=== PATIENT | female | born 1965 | race Caucasian/White ===

== ENCOUNTER 2017-03-06 09:39 | Outpatient (CLI) | payer OTHER ==
--- NOTE | 2017-03-06 10:55 | RAD ---
4 VIEWS RIGHT KNEE: Date: 03/06/17 COMPARISON: None. HISTORY: Right knee pain. FINDINGS: Four views of the right knee show no evidence of acute fracture or dislocation. There are moderate t ricompartment osteophytes consistent with osteoarthritis. No knee effusion is seen. IMPRESSION: Moderate right knee osteoarthritis. POS: [facility]
== END 2017-03-06 09:40 | disposition home or self-care (01) ==
LOC: RAD-FRANK 09:39
PROVIDERS: ATTEND Nurse Practitioner Family
DX: M25.561 Pain in right knee (principal); M17.11 Unilateral primary osteoarthritis, right knee

== ENCOUNTER 2017-05-20 10:40 | Outpatient (CLI) | payer OTHER ==
--- NOTE | 2017-05-20 11:53 | RAD ---
SUPINE ABDOMEN: History: Abdominal pain. FINDINGS: Bowel gas pattern unremarkable. Scattered stool and gas throughout colon. Some scattered small bowel gas has an unremarkable appearance. No evidence of mass. There are two small calcifications overlying the left renal outline which could potentially represent renal calcification. A calcific density ove rlying the outer right upper abdomen lies outside the renal outline. IMPRESSION: 1. Unremarkable bowel gas pattern. 2. Question left renal calcifications. POS: [facility]
== END 2017-05-20 10:41 | disposition home or self-care (01) ==
LOC: RAD-FRANK 10:40
PROVIDERS: ATTEND Nurse Practitioner Family
DX: R10.9 Unspecified abdominal pain (principal)
CPT/HCPCS: 74000

== ENCOUNTER 2017-06-12 11:26 | Outpatient (CLI) | payer OTHER ==
--- NOTE | 2017-06-12 11:46 | RAD ---
TWO VIEW CHEST: Comparison: 07-30-10 Clinical history: Chest pain. FINDINGS: Lungs are clear. No effusion or pneumothorax. Cardiac silhouette is normal in size. IMPRESSION: No focal consolidation. POS: [facility]
== END 2017-06-12 11:27 | disposition home or self-care (01) ==
LOC: RAD-FRANK 11:26
PROVIDERS: ATTEND Nurse Practitioner Family
DX: R07.89 Other chest pain (principal)
CPT/HCPCS: 71046

== ENCOUNTER 2017-09-08 10:31 | Outpatient (CLI) | payer OTHER ==
--- NOTE | 2017-09-08 12:07 | RAD ---
LUMBAR SPINE RADIOGRAPH 3 VIEW SERIES: INDICATION: Low back pain. FINDINGS: There is multilevel end plate degenerative change with osteophytosis. Mild degenerative disk space n arrowing is seen at multiple levels. No significant subluxation. No compression deformity. There i s multilevel facet sclerosis, greatest inferiorly. Incidental note of atherosclerosis. Punctate den sities overlie the left renal shadow and may represent nephrolithiasis, although not definitely deborah cterized. IMPRESSION: 1. Multilevel degenerative change of the lumbar spine. 2. Atherosclerosis. 3. Punctate densities overlying the left abdomen could relate to nephrolithiasis. Correlate clinica lly and, as necessary, dedicated imaging followup may be obtained. POS: [facility]
== END 2017-09-08 10:32 | disposition home or self-care (01) ==
LOC: RAD-FRANK 10:31
PROVIDERS: ATTEND Nurse Practitioner Family
DX: M54.9 Dorsalgia, unspecified (principal); M47.896 Other spondylosis, lumbar region; I70.90 Unspecified atherosclerosis
CPT/HCPCS: 72100

== ENCOUNTER 2017-11-24 11:19 | Outpatient (CLI) | payer OTHER ==
--- NOTE | 2017-11-24 11:56 | RAD ---
PA AND LATERAL CHEST: History: Chest pain FINDINGS: Comparison made with exam of 06-12-17. The heart size is normal. The lungs are expanded without focal areas of consolidation, pneumothorax o r pleural effusions. There are degenerative changes of the spine. IMPRESSION: No radiographic evidence of acute cardiopulmonary process. POS: [facility]
== END 2017-11-24 11:20 | disposition home or self-care (01) ==
LOC: RAD-FRANK 11:19
PROVIDERS: ATTEND Nurse Practitioner Family
DX: R07.9 Chest pain, unspecified (principal)
CPT/HCPCS: 71046

== ENCOUNTER 2018-06-10 14:47 | Outpatient (CLI) | payer OTHER ==
--- NOTE | 2018-06-10 16:32 | RAD ---
PA AND LATERAL VIEWS CHEST: Date: 06/10/18 HISTORY: Wheezing. FINDINGS: Comparison made with exam of 11/24/17. The heart size is normal. The lungs are well expanded without focal areas of consolidation, pneumotho races, or pleural effusions. There are degenerative changes in the spine. IMPRESSION: No radiographic evidence of acute cardiopulmonary process. POS: [facility]
== END 2018-06-10 14:48 | disposition home or self-care (01) ==
LOC: RAD-FRANK 14:47
PROVIDERS: ATTEND Nurse Practitioner Family
DX: R06.2 Wheezing (principal)
CPT/HCPCS: 71046

== ENCOUNTER 2018-07-13 11:04 | Outpatient (CLI) | payer OTHER ==
--- NOTE | 2018-07-13 11:59 | RAD ---
CHEST 2 VIEWS: Date: 07/13/18 HISTORY: Lump under left breast, lateral to sternum. COMPARISON: 06/10/18. FINDINGS: Heart size is normal. The lungs are clear. IMPRESSION: No acute intrathoracic disease. Stable from prior study. Atherosclerosis of aorta. If there is concer n for a palpable abnormality, follow-up ultrasound study of that palpable abnormality might be of luz efit. POS: [facility]
== END 2018-07-13 11:05 | disposition home or self-care (01) ==
LOC: RAD-FRANK 11:04
PROVIDERS: ATTEND Nurse Practitioner Family
DX: R22.2 Localized swelling, mass and lump, trunk (principal); I70.0 Atherosclerosis of aorta
CPT/HCPCS: 71046

== ENCOUNTER 2018-12-07 16:00 | Outpatient (CLI) | payer OTHER ==
--- NOTE | 2018-12-07 17:20 | RAD ---
ABDOMEN ONE VIEW: COMPARISON: 05/20/2017 CORRELATION: CT stone protocol from 09/04/2018. FINDINGS: Nonspecific bowel gas pattern. A calculus projects over the left renal silhouette, measuring 1.3 cm. Additional calculi are not appreciated. IMPRESSION: Calculus projecting over the left renal silhouette, at the level of the left renal pelvis. POS: [facility]
== END 2018-12-07 16:01 | disposition home or self-care (01) ==
LOC: RAD 16:00
PROVIDERS: ATTEND Urology
DX: N20.0 Calculus of kidney (principal)
CPT/HCPCS: 74018

== ENCOUNTER 2019-02-03 06:53 | Outpatient (CLI) | payer OTHER ==
[2019-02-03 14:50] LABS: Hemoglobin 16.5 g/dL (12.0-16.0); Mean Corpuscular HGB CONC 34.6 g/dL (32.0-36.0); Mean Corpuscular Hemoglobin 32.3 pg (27.0-31.0); Mean Corpuscular Volume 93.1 fL (78.0-98.0); Mean Platelet Volume 7.4 fL (7.4-10.4); Platelet Count 279 thou/uL (130-400); RBC Distribution Width 11.9 % (11.5-14.5); Red Blood Cell (RBC) Count 5.12 mill/uL (4.20-5.40)
[2019-02-03 14:55] LABS: INR-International Normal Ratio 0.9; PTT 34.9 SEC (22.9-36.1); Prothrombin Time 11.9 SEC (12.0-14.7)
[2019-02-03 15:04] LABS: BHCG - Serum Negative (NEGATIVE); Pregs Control Background? CLEAR/WHITE (CLR/WHITE); Pregs Control Bar Appear? YES (CONTROL BAR)
[2019-02-03 15:10] LABS: Bilirubin Negative (Negative); Blood, Urine Negative (Negative); Clarity Clear (Clear); Glucose, Urine (Dipstick) Normal (Negative); Leukocyte Negative Leu/uL (Negative); Nitrite Negative (Negative); Protein, Urine (Dipstick) Negative (Neg-Trace); RBC/HPF 0-3 HPF (0-3); Urobilinogen Normal mg/dL (Less than 2); WBC/HPF 0-3 HPF (0-3)
[2019-02-03 15:17] LABS: Anion Gap 13 mmol/L (10-20); BUN (Urea Nitrogen) 17 mg/dL (9.8-20.1); Calc. Creatinine Clearance 0 mL/min (70-130); Calcium 9.8 mg/dL (7.8-10.44); Carbon Dioxide 22 mmol/L (22-29); Chloride 110 mmol/L (98-107); Estimated GFR-MDRD 75; Glucose 92 mg/dL (70-105); Potassium 3.8 mmol/L (3.5-5.1); Sodium 141 mmol/L (136-145)
[2019-02-03 15:20] LABS: Bacteria/HPF 1+ HPF (None Seen)
== END 2019-02-03 06:54 | disposition home or self-care (01) ==
LOC: LABBT 06:53
PROVIDERS: ATTEND Urology
DX: Z01.818 Encounter for other preprocedural examination (principal); N20.0 Calculus of kidney
CPT/HCPCS: 80048; 81001; 84703; 85027; 85610; 85730; 87086; 93005; 93010

== ENCOUNTER 2019-02-11 08:25 | Day surgery (SDC) | payer OTHER ==
[2019-02-03 13:47] VITALS: BMI 28.9
[2019-02-11] MEDS ORDERED: B & O ONE (10:36)
[2019-02-11] MEDS ORDERED: Levofloxacin 500 mg/D5W 100 ml Premix Bag ONE (10:36)
[2019-02-11] MEDS ORDERED: Midazolam HCl 2 mg/2 ml Vial ONE (10:43)
[2019-02-11] MEDS ORDERED: Fentanyl 100 MCG/2 ML VIAL ONE ×3 (10:43→12:21)
[2019-02-11] MEDS ORDERED: Promethazine HCl 25 MG/ML VIAL ONE (11:58)
[2019-02-11] MEDS ORDERED: PROPOFOL 200 MG/20 ML VIAL ONE (12:54)
[2019-02-11] MEDS ORDERED: ePHEDrine 50 MG/ML VIAL ONE (12:54)
[2019-02-11] MEDS ORDERED: Lidocaine 1% PF 5 ML VIAL ONE (12:54)
--- NOTE | 2019-02-11 15:27 | OP ---
DATE OF PROCEDURE: 02/11/2019 SERVICE: Urology. PREOPERATIVE DIAGNOSIS: Left ureteropelvic junction stone. POSTOPERATIVE DIAGNOSIS: Left ureteropelvic junction stone. PROCEDURES PERFORMED: Left ureteroscopy, laser lithotripsy, basket extraction of stone, and placement of a 6 x 24 double-J stent with string attached. INDICATION FOR PROCEDURE: Ms. Duque is a 54-year-old white female, who initially presented with left flank pain. CT demonstrated a 1.1 cm UPJ stone without significant obstruction. She has elected to have this treated given the size and occasional symptoms. Risks and benefits have been discussed. She has agreed to proceed forward. DESCRIPTION OF PROCEDURE: After identification of armband and verification of consent, the patient was brought back to the operating room, where she underwent general anesthesia with an LMA. She was then placed in dorsal lithotomy position and prepped and draped in usual sterile fashion. After appropriate time-out, a lubricated 22-Bangladeshi rigid cystoscope was introduced per urethra and attention was turned to the left ureteral orifice. This was cannulated with a 0.035 Sensor wire up to the level of the kidney. The cystoscope was then removed, and a dual-lumen catheter was advanced over the Sensor wire up to the level of the proximal ureter. An Amplatz Super Stiff wire was then advanced through the second lumen up to the level of the kidney, and then the dual-lumen removed. The Sensor wire was then affixed to the drapes as a safety wire. An 11/13 x 28 cm ureteral access sheath was advanced with ease over the Super Stiff wire up to the level of the proximal ureter. The inner cannula was then removed leaving the outer sheath and Sensor wire in place. A flexible digital ureteroscope was then passed through the ureteral access sheath up into the kidney, where the stone was immediately apparent. Using a 273 ball-tipped micron laser fiber, the stone was completely fragmented in the dusting setting into very, very small particles. The few remaining larger pieces were basketed out using a 1.9-Bangladeshi ZeroTip Nitinol basket, and any remaining pieces were pulverized using the popcorn setting on the laser to break them up into 1 mm particles. Upon completion, there were no particles that were greater than a millimeter. All stone fragments were extremely small and I felt this would pass on its own. The ureteroscope was then withdrawn into the ureter, and pull-back ureteroscopy was employed to ensure that there were no fragments within the ureter, none were encountered. The cystoscope was then backloaded over the Sensor wire back into the bladder, and a 6 x 24 double-J stent with string attached was advanced over the Sensor wire up to the level of the kidney. The wire was removed leaving a partial curl in the kidney and a good curl in the bladder. The bladder was then emptied. The cystoscope was removed. The OpSite was affixed to the patient's inner thigh, and B and O suppository was placed in the rectum. She was then taken out of positioning awakened, taken to PACU for recovery in stable condition. COMPLICATIONS: None. ESTIMATED BLOOD LOSS: Minimal. RETAINED TUBES AND DRAINS: 6 x 24 double-J stent on the left with string attached. SPECIMENS: Stone for stone analysis. DISPOSITION: The patient will follow up in 1 week for a stent removal in office or she may remove the stent at home. We will then handle her stone prevention on an outpatient basis. Job ID: [id number]
== END 2019-02-11 14:18 | disposition home or self-care (01) ==
LOC: SDC 08:25
PROVIDERS: ATTEND Urology
PROC: 0T778DZ Dilation of Left Ureter with Intraluminal Device, Via Natural or Artificial Opening Endoscopic (ICD-10-PCS; principal; 2019-02-11)
PROC: 0TF48ZZ Fragmentation in Left Kidney Pelvis, Via Natural or Artificial Opening Endoscopic (ICD-10-PCS; principal; 2019-02-11)
DX: N20.0 Calculus of kidney (principal); I10 Essential (primary) hypertension; G43.909 Migraine, unspecified, not intractable, without status migrainosus; E78.5 Hyperlipidemia, unspecified; Z79.899 Other long term (current) drug therapy; Z88.2 Allergy status to sulfonamides; Z88.5 Allergy status to narcotic agent; Z91.048 Other nonmedicinal substance allergy status
CPT/HCPCS: 76000; 82365; 88300; C1769; J1956; J2001; J2250; J2550; J2704; J3010; J3490

== ENCOUNTER 2019-06-10 09:14 | Outpatient (CLI) | payer OTHER ==
--- NOTE | 2019-06-10 09:39 | ULT ---
RENAL ULTRASOUND HISTORY: Nephrolithiasis COMPARISON: CT of the abdomen and pelvis dated September 03, 2018 FINDINGS: Right Kidney: Size: 10.7 x 4.7 x 5.8 cm. Abnormality: Normal cortical echotexture. No hydronephrosis. Left Kidney: Size: 11.4 x 5.5 x 6.0 cm. Abnormality: Normal cortical echotexture. No hydronephrosis Urinary bladder: Normal mucosa. The prevoid bladder volume was 290 cc. There is no appreciable residual seen following voiding. IMPRESSION: No focal renal lesion or hydronephrosis.
== END 2019-06-10 09:15 | disposition home or self-care (01) ==
LOC: BICULT 09:14
PROVIDERS: ATTEND Urology
DX: N20.0 Calculus of kidney (principal)
CPT/HCPCS: 76770

== ENCOUNTER 2019-11-08 10:19 | Outpatient (CLI) | payer OTHER ==
--- NOTE | 2019-11-08 12:15 | RAD ---
RIGHT KNEE 4 VIEWS: Date; 11/08/2019 HISTORY: Right knee pain. FINDINGS: Comparison made with exam of 03/06/2017. Moderate osteoarthritic changes are again seen. No fracture, dislocation, or bony destruction identif ied. IMPRESSION: Moderate right knee osteoarthritis. POS: [facility]
== END 2019-11-08 10:20 | disposition home or self-care (01) ==
LOC: RAD-FRANK 10:19
PROVIDERS: ATTEND Nurse Practitioner Family
DX: M25.561 Pain in right knee (principal); M17.11 Unilateral primary osteoarthritis, right knee

== ENCOUNTER 2021-03-15 07:58 | Outpatient (CLI) | payer OTHER | END 2021-03-15 07:59 | disposition home or self-care (01) | LOC: BICCT 07:58 | PROVIDERS: ATTEND Otolaryngology Plastic Surgery within the Head & Neck | DX: H90.5 Unspecified sensorineural hearing loss (principal); G93.89 Other specified disorders of brain | CPT/HCPCS: 70480 ==

== ENCOUNTER 2022-03-14 09:25 | Outpatient (CLI) | payer OTHER | END 2022-03-14 09:26 | disposition home or self-care (01) | LOC: RAD-FRANK 09:25 | PROVIDERS: ATTEND Nurse Practitioner Family | DX: M79.604 Pain in right leg (principal); M17.11 Unilateral primary osteoarthritis, right knee; M77.31 Calcaneal spur, right foot ==

== ENCOUNTER 2023-01-06 09:29 | Outpatient (CLI) | payer OTHER | END 2023-01-06 09:30 | disposition home or self-care (01) | LOC: RAD-FRANK 09:29 | PROVIDERS: ATTEND Nurse Practitioner Family | DX: R05.9 Cough, unspecified (principal) | CPT/HCPCS: 71046 ==

== ENCOUNTER 2023-08-19 11:21 | Outpatient (CLI) | payer OTHER | END 2023-08-19 11:22 | disposition home or self-care (01) | LOC: RAD 11:21 | PROVIDERS: ATTEND Nurse Practitioner Family | DX: S39.012A Strain of muscle, fascia and tendon of lower back, initial encounter (principal); M47.816 Spondylosis without myelopathy or radiculopathy, lumbar region | CPT/HCPCS: 72110 ==

== ENCOUNTER 2023-10-21 09:01 | Outpatient (CLI) | payer OTHER | END 2023-10-21 09:02 | disposition home or self-care (01) | LOC: BICULT 09:01 | PROVIDERS: ATTEND Nurse Practitioner Family | DX: R60.0 Localized edema (principal) ==

== ENCOUNTER 2024-07-22 14:02 | Outpatient (CLI) | payer OTHER | END 2024-07-22 14:03 | disposition home or self-care (01) | LOC: BICMAMMO 14:02 | PROVIDERS: ATTEND Nurse Practitioner Family | DX: Z12.31 Encounter for screening mammogram for malignant neoplasm of breast (principal); Z80.3 Family history of malignant neoplasm of breast | CPT/HCPCS: 77067 ==

== ENCOUNTER 2024-07-25 19:30 | Inpatient (IN) | payer OTHER ==
[2024-07-25 20:47] LABS: Actual Bicarbonate (HCO3v) 20.7 mEq/L (22-28); Analyzer IN Cardio ER; Base Excess -2.7 mEq/L (-2.0 to +3.0); Calcium, Ionized (venous) 1.06 mmol/L (1.16-1.32); Chloride (VBG) 103 mmol/L (98-106); Hematocrit-VBG 39 % (36.0-47.0); Hemoglobin (Hb) 13.2 g/dL (11.7-16.0); Sodium 138 mmol/L (133-146)
[2024-07-25] MEDS ORDERED: Sodium Chloride 0.9% 100 ML ONE (21:27)
[2024-07-25] MEDS ORDERED: cefTRIAXone (ROCEPHIN) 2 GM VIAL ONE (21:27)
[2024-07-25] MEDS ORDERED: Lorazepam 2 MG/ML VIAL ONE (23:26)
[2024-07-25] MEDS ORDERED: Haloperidol Lactate 5 MG/ML VIAL ONE (23:42)
[2024-07-26] MEDS ORDERED: Ondansetron PF 4 MG/2 ML Vial IVP PRN (00:26)
[2024-07-26] MEDS ORDERED: Ondansetron ODT 4 MG TAB PO PRN (00:26)
[2024-07-26] MEDS ORDERED: traMADol HCl 50 MG TAB PO PRN (00:26)
[2024-07-26] MEDS ORDERED: Ketorolac Tromethamine 30 MG (1 mL) VIAL IVP PRN (00:26)
[2024-07-26 00:59] LABS: Color Of CSF Supernatant COLORLESS (Colorless); Tube # 2; Unspun CSF Color COLORLESS (Colorless)
[2024-07-26 01:02] LABS: CSF Source CSF
[2024-07-26 01:03] LABS: Clarity Hazy (Clear); Tube # 1
[2024-07-26 01:08] LABS: CSF, Glucose 56 mg/dl (40-70); CSF, Protein 48.7 mg/dL (15-40)
[2024-07-26 01:34] LABS: #Basophils Less than 0.03 10x3/uL (0.0-0.2); #Eosinophils Less than 0.03 10x3/uL (0.0-0.7); %Basophils 0.3 % (0.0-1.0); %Lymphocytes 5.9 % (21.0-51.0); %Monocytes 4.4 % (0.0-10.0); %Neutrophils 88.9 % (42.0-75.0); Hematocrit 39.3 % (36.0-47.0); Hemoglobin 12.2 g/dL (12.0-16.0); Mean Corpuscular Hemoglobin 27.2 pg (27.0-31.0); Mean Corpuscular Volume 87.5 fL (78.0-98.0); Mean Platelet Volume 9.4 fL (7.4-10.4); Platelet Count 193 10x3/uL (130-400); RBC Distribution Width 15.9 % (11.5-14.5); Red Blood Cell (RBC) Count 4.49 mill/uL (4.20-5.40)
[2024-07-26 01:52] LABS: ALT (SGPT) 13 U/L (Less than 34); AST (SGOT) 45 U/L (11-34); Albumin 3.4 g/dL (3.1-4.5); Alkaline Phosphatase 56 U/L (40-110); Anion Gap 18 mmol/L (10-20); BUN (Urea Nitrogen) 12 mg/dL (9.8-20.1); Bilirubin, Total 0.2 mg/dL (0.3-1.2); Calc. Creatinine Clearance 0 mL/min (70-130); Calcium 8.6 mg/dL (7.8-10.44); Carbon Dioxide 17 mmol/L (22-29); Chloride 106 mmol/L (98-107); Estimated GFR 84; Globulin 3.8 g/dL (2.4-3.5); Glucose 134 mg/dL (70-105); Potassium 3.5 mmol/L (3.5-5.1); Protein, Total 7.2 g/dL (6.0-8.3); Sodium 137 mmol/L (136-145)
[2024-07-26] MEDS ORDERED: Glucagon 1 MG/ML KIT IM PRN (02:18)
[2024-07-26] MEDS ORDERED: Dextrose 50% Abboject 50 ML SYRINGE SLOW IVP PRN (02:18)
[2024-07-26] MEDS ORDERED: Dextrose 5% in Water 1,000 ML IV PRN (02:18)
[2024-07-26] MEDS ORDERED: Insulin Lispro 100 UNIT/ML 10 ML VIAL SC PRN ×2 (02:18)
[2024-07-26 02:42] LABS: Amphetamine Not Detected (NotDetected); Barbiturates Screen Detected (NotDetected); Benzodiazepine Screen Detected (NotDetected); Cocaine Metabolite Screen Not Detected (NotDetected); Methadone Not Detected (NotDetected); Methamphetamine Not Detected (NotDetected); Opiate Screen Not Detected (NotDetected); Oxycodone Screen Not Detected (NotDetected); Phencyclidine (PCP) Not Detected (NotDetected); THC/Cannabinoid Screen Not Detected (NotDetected); Tricyclic Screen Not Detected (NotDetected)
[2024-07-26 03:37] LABS: #Basophils 0.03 10x3/uL (0.0-0.2); #Eosinophils Less than 0.03 10x3/uL (0.0-0.7); %Basophils 0.4 % (0.0-1.0); %Lymphocytes 7.8 % (21.0-51.0); %Monocytes 4.9 % (0.0-10.0); %Neutrophils 86.5 % (42.0-75.0); Hematocrit 35.5 % (36.0-47.0); Hemoglobin 11.5 g/dL (12.0-16.0); Mean Corpuscular HGB CONC 32.4 g/dL (32.0-36.0); Mean Corpuscular Hemoglobin 27.3 pg (27.0-31.0); Mean Corpuscular Volume 84.3 fL (78.0-98.0); Mean Platelet Volume 9.8 fL (7.4-10.4); Platelet Count 189 10x3/uL (130-400); RBC Distribution Width 15.9 % (11.5-14.5); Red Blood Cell (RBC) Count 4.21 mill/uL (4.20-5.40)
[2024-07-26 03:54] LABS: Alcohol Less than 10.0 mg/dL (Less than 10)
[2024-07-26 04:07] LABS: CK (CPK) 4320 U/L (29-168)
[2024-07-26 04:08] LABS: ALT (SGPT) 15 U/L (Less than 34); AST (SGOT) 54 U/L (11-34); Albumin 3.2 g/dL (3.1-4.5); Alkaline Phosphatase 51 U/L (40-110); Anion Gap 14 mmol/L (10-20); BUN (Urea Nitrogen) 12 mg/dL (9.8-20.1); Bilirubin, Total 0.2 mg/dL (0.3-1.2); Calc. Creatinine Clearance 71 mL/min (70-130); Calcium 8.4 mg/dL (7.8-10.44); Carbon Dioxide 21 mmol/L (22-29); Cardiac Risk 3.5 (Less than 4.5); Chloride 105 mmol/L (98-107); Cholesterol 125 mg/dl (< 200 Desired); Estimated GFR 92; Globulin 3.6 g/dL (2.4-3.5); Glucose 109 mg/dL (70-105); HDL Cholesterol 36 mg/dL (>60 Neg Risk); LDL Cholesterol, Calculated 67 mg/dL; Potassium 3.1 mmol/L (3.5-5.1); Protein, Total 6.8 g/dL (6.0-8.3); Sodium 137 mmol/L (136-145); Triglycerides 108 mg/dL (Less than 150)
[2024-07-26] MEDS: levETIRAcetam 500 MG (5 mL) VIAL SLOW IVP SCH ×2 (04:12→14:39)
[2024-07-26 05:48] LABS: Bacteria/HPF None Seen HPF (None Seen); Bilirubin Negative (Negative); Blood, Urine 2+ (Negative); CAUTI Indications for Culture Alt mental st,lethar; Clarity Clear (Clear); Glucose, Urine (Dipstick) Normal (Negative); Ketone, Urine 10 mg/dL (Negative); Leukocyte Negative Leu/uL (Negative); Nitrite Negative (Negative); Protein, Urine (Dipstick) 100 mg/dL (Neg-Trace); Specific Gravity, Urine 1.014 (1.002-1.036); Squamous Epithelial 0-3 HPF (0-3); Urobilinogen Normal mg/dL (Less than 2); WBC/HPF 0-3 HPF (0-3); pH, Urine 5.5 (5.0-9.0)
[2024-07-26 05:55] LABS: Urine Culture Reflex No No
[2024-07-26] MEDS ORDERED: ACYCLOVIR SODIUM IVPB SCH (06:00)
[2024-07-26] MEDS ORDERED: SODIUM CHLORIDE 0.9% IVPB SCH (06:00)
[2024-07-26 06:25] LABS: Phosphorus 2.6 mg/dL (2.5-4.5)
[2024-07-26 06:27] LABS: Magnesium 1.5 mg/dL (1.6-2.6)
[2024-07-26] MEDS: Acetaminophen 650 MG Suppository PR PRN (08:54)
[2024-07-26] MEDS: Pantoprazole 40 MG VIAL IVP SCH (08:54)
[2024-07-26] MEDS: Potassium Chloride 20 MEQ in Premix 1 BAG IVPB SCH (08:55)
[2024-07-26] MEDS ORDERED: levETIRAcetam 500 MG (5 mL) VIAL SLOW IVP SCH (09:00)
[2024-07-26] MEDS ORDERED: Famotidine/PF 20 mg/2ml Vial SLOW IVP SCH (09:00)
[2024-07-26] MEDS ORDERED: Famotidine 20 MG TAB PO SCH (09:00)
[2024-07-26] MEDS: Aspirin 81 mg Enteric Coated Tablet PO SCH (09:04)
[2024-07-26] MEDS: Sodium Chloride 0.9% 1,000 ML IV SCH (14:38)
[2024-07-26] MEDS: Magnesium 2 GM/50 ML(in water) 2 GM in Premix 1 BAG IVPB SCH (14:38)
[2024-07-26] MEDS: Ipratropium/Albuterol 3 ML NEB NEB PRN (18:54)
[2024-07-26] MEDS: Atorvastatin Calcium 40 MG TAB PO SCH (22:49)
[2024-07-27 04:00] LABS: #Basophils Less than 0.03 10x3/uL (0.0-0.2); #Eosinophils Less than 0.03 10x3/uL (0.0-0.7); %Basophils 0.6 % (0.0-1.0); %Lymphocytes 18.8 % (21.0-51.0); %Monocytes 6.7 % (0.0-10.0); %Neutrophils 73.6 % (42.0-75.0); Hematocrit 32.9 % (36.0-47.0); Hemoglobin 10.6 g/dL (12.0-16.0); Mean Corpuscular HGB CONC 32.2 g/dL (32.0-36.0); Mean Corpuscular Volume 83.7 fL (78.0-98.0); Mean Platelet Volume 9.6 fL (7.4-10.4); Platelet Count 160 10x3/uL (130-400); RBC Distribution Width 15.9 % (11.5-14.5); Red Blood Cell (RBC) Count 3.93 mill/uL (4.20-5.40)
[2024-07-27 05:02] LABS: CK (CPK) 5757 U/L (29-168)
[2024-07-27 05:04] LABS: Anion Gap 13 mmol/L (10-20); BUN (Urea Nitrogen) 10 mg/dL (9.8-20.1); Calc. Creatinine Clearance 78 mL/min (70-130); Carbon Dioxide 22 mmol/L (22-29); Chloride 104 mmol/L (98-107); Estimated GFR 100; Glucose 77 mg/dL (70-105); Potassium 3.3 mmol/L (3.5-5.1); Sodium 136 mmol/L (136-145)
[2024-07-27] MEDS ORDERED: Electrolyte Replacement Protocol FS PRN (10:45)
[2024-07-27] MEDS: Potassium Chloride 20 MEQ TAB PO SCH (10:47)
[2024-07-27] MEDS: Acetaminophen 325 MG TAB PO PRN (12:02)
[2024-07-27] MEDS: Magnesium 2 GM/50 ML(in water) 2 GM in Premix 1 BAG IVPB SCH (12:03)
[2024-07-27 17:25] LABS: Potassium 3.7 mmol/L (3.5-5.1)
[2024-07-28 04:24] LABS: #Basophils Less than 0.03 10x3/uL (0.0-0.2); %Basophils 0.8 % (0.0-1.0); %Eosinophils 1.6 % (0.0-10.0); %Lymphocytes 29.5 % (21.0-51.0); %Monocytes 8.2 % (0.0-10.0); %Neutrophils 59.9 % (42.0-75.0); Hematocrit 37.8 % (36.0-47.0); Hemoglobin 12.2 g/dL (12.0-16.0); Mean Corpuscular HGB CONC 32.3 g/dL (32.0-36.0); Mean Corpuscular Hemoglobin 26.9 pg (27.0-31.0); Mean Corpuscular Volume 83.3 fL (78.0-98.0); Mean Platelet Volume 9.2 fL (7.4-10.4); Platelet Count 182 10x3/uL (130-400); RBC Distribution Width 15.9 % (11.5-14.5); Red Blood Cell (RBC) Count 4.54 mill/uL (4.20-5.40)
[2024-07-28 04:26] LABS: Anion Gap 16 mmol/L (10-20); BUN (Urea Nitrogen) 7 mg/dL (9.8-20.1); Calc. Creatinine Clearance 82 mL/min (70-130); Calcium 8.6 mg/dL (7.8-10.44); Carbon Dioxide 22 mmol/L (22-29); Chloride 105 mmol/L (98-107); Estimated GFR 101; Glucose 78 mg/dL (70-105); Magnesium 1.7 mg/dL (1.6-2.6); Potassium 3.5 mmol/L (3.5-5.1); Sodium 139 mmol/L (136-145)
[2024-07-28 06:28] VITALS: BMI 24.4
[2024-07-28] MEDS: Potassium Chloride 20 MEQ TAB PO SCH (08:40)
[2024-07-28] MEDS: Magnesium 2 GM/50 ML(in water) 2 GM in Premix 1 BAG IVPB SCH (08:40)
[2024-07-28] MEDS: Pantoprazole 40 MG DR.TAB PO SCH (08:40)
[2024-07-28] MEDS: Lorazepam 2 MG/ML VIAL SLOW IVP PRN (11:24)
[2024-07-28 12:37] LABS: West Nile Virus IgG Ab - CSF Negative (Negative); West Nile Virus IgM Ab - CSF Negative (Negative)
[2024-07-28] MEDS: cloNIDine 0.2mg/24 Hour PATCH TD SCH (16:11)
[2024-07-28] MEDS: Lorazepam 2 MG/ML VIAL SLOW IVP SCH (16:12)
[2024-07-28] MEDS: Sodium Chloride 0.9% 1,000 ML IV SCH (16:17)
[2024-07-28] MEDS: Haloperidol Lactate 5 MG/ML VIAL IM SCH (17:04)
[2024-07-29 04:32] LABS: Hematocrit 33.2 % (36.0-47.0); Hemoglobin 10.8 g/dL (12.0-16.0); Mean Corpuscular HGB CONC 32.5 g/dL (32.0-36.0); Mean Corpuscular Hemoglobin 27.3 pg (27.0-31.0); Mean Corpuscular Volume 83.8 fL (78.0-98.0); Mean Platelet Volume 8.7 fL (7.4-10.4); Platelet Count 178 10x3/uL (130-400); RBC Distribution Width 15.6 % (11.5-14.5); Red Blood Cell (RBC) Count 3.96 mill/uL (4.20-5.40)
[2024-07-29 04:59] LABS: Anion Gap 16 mmol/L (10-20); BUN (Urea Nitrogen) 6 mg/dL (9.8-20.1); Calc. Creatinine Clearance 85 mL/min (70-130); Calcium 8.3 mg/dL (7.8-10.44); Carbon Dioxide 21 mmol/L (22-29); Chloride 107 mmol/L (98-107); Estimated GFR 103; Glucose 76 mg/dL (70-105); Potassium 2.9 mmol/L (3.5-5.1); Sodium 141 mmol/L (136-145)
[2024-07-29 05:23] LABS: Band 8 % (5-11); Eosinophils 1 % (0-10); Hypochromia SLIGHT = 6-15 cells HPF (0-5); Lymphocytes 32 % (21-51); Monocytes 6 % (0-10); Neutrophil 49 % (42-75); Platelet Adequacy Comment Platelets Normal; Polychromasia SLIGHT = 2-3 cells HPF (0-2); Reactive Lymphocytes 2 % (0-10)
[2024-07-29] MEDS: Potassium Chloride 20 MEQ in Premix 1 BAG IVPB SCH (10:01)
[2024-07-29] MEDS ORDERED: Iopamidol 370 76% 100 ML VIAL ONE (10:14)
[2024-07-29] MEDS: Lorazepam 2 MG/ML VIAL SLOW IVP SCH (14:12)
[2024-07-29] MEDS: OLANZapine 5 MG TAB PO SCH (14:12)
[2024-07-29] MEDS: levETIRAcetam 500 MG (5 mL) VIAL SLOW IVP SCH (16:29)
[2024-07-29] MEDS ORDERED: Lorazepam 2 MG/ML VIAL SLOW IVP PRN (16:57)
[2024-07-29] MEDS: Labetalol HCl 100 MG/20 ML VIAL SLOW IVP SCH (22:24)
[2024-07-30] MEDS: Labetalol HCl 100 MG/20 ML VIAL SLOW IVP SCH ×2 (05:07→22:42)
[2024-07-30 07:47] LABS: Hematocrit 37.2 % (36.0-47.0); Hemoglobin 12.4 g/dL (12.0-16.0); Mean Corpuscular HGB CONC 33.3 g/dL (32.0-36.0); Mean Corpuscular Hemoglobin 27.3 pg (27.0-31.0); Mean Corpuscular Volume 81.9 fL (78.0-98.0); Mean Platelet Volume 9.1 fL (7.4-10.4); Platelet Count 201 10x3/uL (130-400); RBC Distribution Width 15.5 % (11.5-14.5); Red Blood Cell (RBC) Count 4.54 mill/uL (4.20-5.40)
[2024-07-30 07:52] LABS: Anion Gap 18 mmol/L (10-20); BUN (Urea Nitrogen) 8 mg/dL (9.8-20.1); CK (CPK) 357 U/L (29-168); Calc. Creatinine Clearance 82 mL/min (70-130); Calcium 8.8 mg/dL (7.8-10.44); Carbon Dioxide 20 mmol/L (22-29); Chloride 106 mmol/L (98-107); Estimated GFR 103; Glucose 87 mg/dL (70-105); Potassium 3.4 mmol/L (3.5-5.1); Sodium 141 mmol/L (136-145)
[2024-07-30 09:04] LABS: Band 2 % (5-11); Burr Cells SLIGHT = 2-5 cells HPF (0-1); Eosinophils 1 % (0-10); Lymphocytes 27 % (21-51); Monocytes 3 % (0-10); Neutrophil 61 % (42-75); Platelet Adequacy Comment Platelets Normal; Polychromasia SLIGHT = 2-3 cells HPF (0-2); Reactive Lymphocytes 2 % (0-10); Smudge Cells 10.8 %
[2024-07-30] MEDS: OLANZapine 5 MG TAB PO SCH (10:36)
[2024-07-30] MEDS: Potassium Chloride 20 MEQ TAB PO SCH (10:36)
[2024-07-30] MEDS: NIFEdipine XL 30 MG ER.TAB PO SCH (15:55)
[2024-07-30] MEDS: Oxazepam 10 MG CAP PO SCH (18:00)
[2024-07-30] MEDS: Thiamine HCl 500 MG in Sodium Chloride 0.9% 100 ML IVPB SCH (18:00)
[2024-07-30] MEDS: cloNIDine 0.3mg/24 Hour PATCH TD SCH (18:02)
[2024-07-30] MEDS: hydrALAZINE 20 MG/ML VIAL SLOW IVP PRN (20:50)
[2024-07-30] MEDS: levETIRAcetam 500 mg/5 ml Oral Solution PO SCH (20:51)
[2024-07-30] MEDS: Lorazepam 2 MG/ML VIAL SLOW IVP PRN (21:25)
[2024-07-30] MEDS: levETIRAcetam 500 MG (5 mL) VIAL SLOW IVP SCH (21:56)
[2024-07-31 04:09] LABS: Hematocrit 43.8 % (36.0-47.0); Hemoglobin 14.1 g/dL (12.0-16.0); Mean Corpuscular HGB CONC 32.2 g/dL (32.0-36.0); Mean Corpuscular Hemoglobin 26.5 pg (27.0-31.0); Mean Corpuscular Volume 82.3 fL (78.0-98.0); Mean Platelet Volume 8.8 fL (7.4-10.4); Platelet Count 252 10x3/uL (130-400); RBC Distribution Width 15.4 % (11.5-14.5); Red Blood Cell (RBC) Count 5.32 mill/uL (4.20-5.40)
[2024-07-31 04:19] LABS: Anion Gap 23 mmol/L (10-20); BUN (Urea Nitrogen) 12 mg/dL (9.8-20.1); CK (CPK) 184 U/L (29-168); Calc. Creatinine Clearance 73 mL/min (70-130); Calcium 9.7 mg/dL (7.8-10.44); Carbon Dioxide 15 mmol/L (22-29); Chloride 105 mmol/L (98-107); Estimated GFR 100; Glucose 109 mg/dL (70-105); Potassium 3.4 mmol/L (3.5-5.1); Sodium 140 mmol/L (136-145)
[2024-07-31 04:36] LABS: HIV (1/2) Antibody/Antigen NONREACTIVE (NonReactive); HIV 1/2 INDEX 0.05 S/CO (<1.00)
[2024-07-31 05:37] LABS: Anisocytosis SLIGHT = 6-15 cells HPF (0-5); Band 3 % (5-11); Burr Cells SLIGHT = 2-5 cells HPF (0-1); Lymphocytes 21 % (21-51); Monocytes 11 % (0-10); Neutrophil 65 % (42-75); Ovalocytes SLIGHT = 2-5 cells HPF (0-1); Platelet Adequacy Comment Platelets Normal; Polychromasia SLIGHT = 2-3 cells HPF (0-2)
[2024-07-31] MEDS: Potassium Chloride 20 MEQ TAB PO SCH ×2 (08:54→16:58)
[2024-07-31] MEDS: NIFEdipine XL 30 MG ER.TAB PO SCH (09:10)
[2024-07-31] MEDS: Metoprolol Tartrate 5 MG (5 mL) VIAL IVP SCH (12:54)
[2024-07-31 14:09] LABS: Potassium 3.5 mmol/L (3.5-5.1)
[2024-08-01] MEDS: Metoprolol Tartrate 5 MG (5 mL) VIAL IVP PRN (03:23)
[2024-08-01 04:03] LABS: Hematocrit 44.5 % (36.0-47.0); Hemoglobin 14.4 g/dL (12.0-16.0); Mean Corpuscular HGB CONC 32.4 g/dL (32.0-36.0); Mean Corpuscular Hemoglobin 26.4 pg (27.0-31.0); Mean Corpuscular Volume 81.7 fL (78.0-98.0); Mean Platelet Volume 9.2 fL (7.4-10.4); Platelet Count 321 10x3/uL (130-400); Red Blood Cell (RBC) Count 5.45 mill/uL (4.20-5.40)
[2024-08-01 04:15] LABS: Anion Gap 23 mmol/L (10-20); BUN (Urea Nitrogen) 26 mg/dL (9.8-20.1); Calc. Creatinine Clearance 66 mL/min (70-130); Calcium 10.1 mg/dL (7.8-10.44); Carbon Dioxide 15 mmol/L (22-29); Chloride 109 mmol/L (98-107); Estimated GFR 89; Glucose 127 mg/dL (70-105); Potassium 3.4 mmol/L (3.5-5.1); Sodium 144 mmol/L (136-145)
[2024-08-01 04:33] LABS: Lymphocytes 15 % (21-51); Monocytes 6 % (0-10); Neutrophil 76 % (42-75); Platelet Adequacy Comment Platelets Normal; RBC Morphology Within Normal Limits; Reactive Lymphocytes 2 % (0-10)
[2024-08-01] MEDS: Potassium Chloride 20 MEQ in Premix 1 BAG IVPB SCH (05:28)
[2024-08-01] MEDS: NIFEdipine XL 60 MG ER.TAB PO SCH (10:33)
[2024-08-02 04:51] LABS: #Basophils 0.04 10x3/uL (0.0-0.2); #Eosinophils Less than 0.03 10x3/uL (0.0-0.7); %Basophils 0.4 % (0.0-1.0); %Eosinophils 0.2 % (0.0-10.0); %Lymphocytes 19.7 % (21.0-51.0); %Monocytes 7.9 % (0.0-10.0); %Neutrophils 70.8 % (42.0-75.0); Hematocrit 44.5 % (36.0-47.0); Hemoglobin 14.5 g/dL (12.0-16.0); Mean Corpuscular HGB CONC 32.6 g/dL (32.0-36.0); Mean Corpuscular Hemoglobin 26.8 pg (27.0-31.0); Mean Corpuscular Volume 82.1 fL (78.0-98.0); Mean Platelet Volume 9.6 fL (7.4-10.4); Platelet Count 345 10x3/uL (130-400); RBC Distribution Width 16.6 % (11.5-14.5); Red Blood Cell (RBC) Count 5.42 mill/uL (4.20-5.40)
[2024-08-02 05:16] LABS: Anion Gap 20 mmol/L (10-20); BUN (Urea Nitrogen) 31 mg/dL (9.8-20.1); Calc. Creatinine Clearance 69 mL/min (70-130); Calcium 10.3 mg/dL (7.8-10.44); Carbon Dioxide 18 mmol/L (22-29); Chloride 113 mmol/L (98-107); Estimated GFR 93; Glucose 118 mg/dL (70-105); Potassium 4.1 mmol/L (3.5-5.1); Sodium 147 mmol/L (136-145)
[2024-08-02] MEDS: Dextrose 5% in Water 1,000 ML IV SCH (09:44)
[2024-08-02] MEDS: Thiamine HCl 500 MG, Admixture Fee 1 EACH in Sodium Chloride 0.9% 50 ML IVPB SCH (11:17)
[2024-08-02] MEDS: Thiamine HCl 500 MG, Admixture Fee 1 EACH in Sodium Chloride 0.9% 100 ML IVPB SCH (19:22)
[2024-08-02 23:08] VITALS: BMI 24.4
[2024-08-03 04:28] LABS: Anion Gap 16 mmol/L (10-20); BUN (Urea Nitrogen) 35 mg/dL (9.8-20.1); Calc. Creatinine Clearance 65 mL/min (70-130); Calcium 9.9 mg/dL (7.8-10.44); Carbon Dioxide 22 mmol/L (22-29); Chloride 110 mmol/L (98-107); Estimated GFR 87; Glucose 133 mg/dL (70-105); Potassium 3.4 mmol/L (3.5-5.1); Sodium 145 mmol/L (136-145)
[2024-08-03 04:42] LABS: Free T4 (Free Thyroxine) 1.72 ng/dL (0.70-1.48); Thyroid Stimulating Hormone 0.4681 uIU/mL (0.35-4.94)
[2024-08-03] MEDS: Potassium Chloride 20 MEQ in Premix 1 BAG IVPB SCH (05:08)
[2024-08-03] MEDS: OLANZapine 2.5 MG TAB PO SCH (15:16)
[2024-08-03] MEDS: Dextrose 5% in Water 1,000 ML IV SCH (19:23)
[2024-08-04 04:10] LABS: Anion Gap 15 mmol/L (10-20); BUN (Urea Nitrogen) 19 mg/dL (9.8-20.1); Calc. Creatinine Clearance 67 mL/min (70-130); Calcium 9.4 mg/dL (7.8-10.44); Carbon Dioxide 22 mmol/L (22-29); Chloride 103 mmol/L (98-107); Estimated GFR 90; Glucose 129 mg/dL (70-105); Potassium 3.4 mmol/L (3.5-5.1); Sodium 137 mmol/L (136-145)
[2024-08-04] MEDS: Potassium Chloride 20 MEQ in Premix 1 BAG IVPB SCH (05:48)
[2024-08-05 05:00] LABS: Anion Gap 15 mmol/L (10-20); BUN (Urea Nitrogen) 12 mg/dL (9.8-20.1); Calc. Creatinine Clearance 75 mL/min (70-130); Calcium 9.6 mg/dL (7.8-10.44); Carbon Dioxide 22 mmol/L (22-29); Chloride 103 mmol/L (98-107); Estimated GFR 100; Glucose 129 mg/dL (70-105); Potassium 3.5 mmol/L (3.5-5.1); Sodium 136 mmol/L (136-145)
[2024-08-05] MEDS: Thiamine 100 MG TAB PO SCH (10:11)
[2024-08-05 12:31] VITALS: BP 119/66; TEMP 97.4
[2024-08-05] MEDS ORDERED: Potassium Chloride 20 MEQ TAB PO SCH (12:45)
[2024-08-06] MEDS ORDERED: cloNIDine 0.3mg/24 Hour PATCH TD SCH (09:00)
== END 2024-08-05 15:33 | disposition home or self-care (01) | DRG 71 ==
LOC: ERS 19:30 → 2NO 07-26 00:28 → CCU 07-26 09:34 → OBSVTOIN 07-26 13:58 → 2SE 07-27 12:51
PROVIDERS: ADMIT Internal Medicine; ATTEND Family Medicine
PROC: XX20X89 Monitoring of Brain Electrical Activity, Computer-aided Detection and Notification, New Technology Group 9 (ICD-10-PCS; principal; 2024-07-26)
PROC: 009U3ZX Drainage of Spinal Canal, Percutaneous Approach, Diagnostic (ICD-10-PCS; 2024-07-26)
DX: G93.41 Metabolic encephalopathy (principal); F13.239 Sedative, hypnotic or anxiolytic dependence with withdrawal, unspecified; M62.82 Rhabdomyolysis; R56.9 Unspecified convulsions; I10 Essential (primary) hypertension; M19.90 Unspecified osteoarthritis, unspecified site; E11.40 Type 2 diabetes mellitus with diabetic neuropathy, unspecified; F15.90 Other stimulant use, unspecified, uncomplicated; R00.0 Tachycardia, unspecified; N20.0 Calculus of kidney; E78.5 Hyperlipidemia, unspecified; K21.9 Gastro-esophageal reflux disease without esophagitis; J44.9 Chronic obstructive pulmonary disease, unspecified; Z90.79 Acquired absence of other genital organ(s); Z98.890 Other specified postprocedural states; Z88.5 Allergy status to narcotic agent; Z88.2 Allergy status to sulfonamides; Z88.8 Allergy status to other drugs, medicaments and biological substances; R05.1 Acute cough; E78.00 Pure hypercholesterolemia, unspecified; F17.210 Nicotine dependence, cigarettes, uncomplicated
CPT/HCPCS: 36415; 36416; 51701; 62270; 70450; 70496; 71045; 80048; 80053; 80061; 80306; 80307; 81001; 82140; 82550; 82607; 82805; 82945; 83605; 83735; 84100; 84146; 84157; 84439; 84443; 84481; 85025; 86592; 86612; 86635; 86698; 86788; 86789; 87040; 87070; 87205; 87389; 87428; 89051; 93005; 93010; 93306; 94640; 94760; 95705; 96360; 96361; 96365; 96372; J0133; J0360; J0696; J1630; J1953; J2060; J2470; J3411; J3475; J3480; J7030; J7070; J7620; Q9967

== ENCOUNTER 2025-02-09 13:50 | Outpatient (CLI) | payer MEDICAID, OTHER | END 2025-02-09 13:51 | disposition home or self-care (01) | LOC: BICMAMMO 13:50 | PROVIDERS: ATTEND Family Medicine | DX: M17.0 Bilateral primary osteoarthritis of knee (principal); M85.859 Other specified disorders of bone density and structure, unspecified thigh; M47.816 Spondylosis without myelopathy or radiculopathy, lumbar region | CPT/HCPCS: 77080 ==